=== PATIENT | male | born 1970 | race American Indian/Alaskan Native ===

== ENCOUNTER 2019-06-29 10:40 | Outpatient (CLI) | payer OTHER ==
--- NOTE | 2019-06-29 12:55 | Magnetic Resonance Report ---
MR UE joint LT wo con INDICATION / CLINICAL INFORMATION: [id number] specific joint derangements of left shoulder, not el. TECHNIQUE: Multiplanar, multisequence MR images were obtained. COMPARISON: None available. 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 There is trace fluid in the subdeltoid/subacromial bursa. Supraspinatus and infraspinatus tendinosis is noted. There appears to be mild intrasubstance tearing of the distal infraspinatus tendon. No full-thickness cuff tear is seen. There is no rotator cuff mus sadie edema or atrophy. Long head biceps tendon is unremarkable. No acute labral tear is seen. There is no para labral cyst. No joint effusion or synovitis. No fracture or contusion. No cartilage defects. IMPRESSION: 1. 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 There is trace associated subdeltoid/subacromial bursitis. 2. Mild distal cuff tendinosis with mild intrasubstance tearing in the distal infraspinatus tendon. N o full-thickness cuff tear. Signer Name: Ariel Velasquez MD Signed: 06/29/2019 12:50 PM Workstation Name: [id number]
== END 2019-06-29 10:41 | disposition home or self-care (01) ==
LOC: MRI 10:40
PROVIDERS: ATTEND Orthopaedic Surgery
DX: S46.812A Strain of other muscles, fascia and tendons at shoulder and upper arm level, left arm, initial encounter (principal); M19.012 Primary osteoarthritis, left shoulder; M77.8 Other enthesopathies, not elsewhere classified; X58.XXXA Exposure to other specified factors, initial encounter; Y93.89 Activity, other specified; Y92.89 Other specified places as the place of occurrence of the external cause; Y99.8 Other external cause status